=== PATIENT | male | born 1990 | race American Indian/Alaskan Native ===

== ENCOUNTER 2019-12-11 19:36 | Emergency (ER) | payer SELFPAY ==
[2019-12-11 19:57] VITALS: BP 135/98
--- NOTE | 2019-12-11 20:43 | XRay Report ---
LEFT SHOULDER, 2 VIEWS INDICATION / CLINICAL INFORMATION: MAIN: Injured left shoulder playing football TODAY. COMPARISON: None available. FINDINGS: No glenohumeral fracture or dislocation. Comminuted and significantly displaced distal left clavicle fracture. Signer Name: Sarkis Orozco MD Signed: 12/11/2019 8:39 PM Workstation Name: [id number]
[2019-12-11] MEDS ORDERED: HYDROcodone/ACETAMINOPHEN 7.5-325MG TAB PO ONE (20:58)
[2019-12-11] MEDS ORDERED: HYDROcodone/ACETAMINOPHEN 7.5-325MG TAB ONE (21:00)
--- NOTE | 2019-12-11 21:04 | Emergency Department Report ---
ED Upper Extremity Inj HPI - General Chief Complaint: Extremity Injury, Upper Stated Complaint: LEFT SHOULDER INJURY Time Seen by Provider: 12/11/19 20:41 Source: patient Mode of arrival: Ambulatory Limitations: No Limitations - History of Present Illness Initial Comments: Is a very pleasant 29-year-old male who presents to the emergency department with chief complaint of left shoulder pain. Patient reports he was playing football with his son when he jumped stretching outward to try and catch a ball and landed on his left shoulder. He denies hitting his head or losing consciousness. He reports the pain in his left shoulder is rated a 9 out of 10 in severity and is aggravated with any movement of the left shoulder. Pain is described as throbbing and dull. No radiating pain. Specifically he has pain when he abducts the left shoulder. He denies any radiating pain. He denies any known past medical history, current medication use or known allergies to medications. - Related Data Previous Rx's Medication Instructions Recorded Last Taken Type Acetaminophen with Codeine 1 each PO Q6HR #15 tablet 12/11/19 Unknown Rx [Acetaminophen-Codeine #4 TAB] Allergies Allergy/AdvReac Type Severity Reaction Status Date / Time No Known Allergies Allergy Unverified 12/11/19 19:53 ED Review of Systems ROS: Stated complaint: LEFT SHOULDER INJURY Other details as noted in HPI Comment: All other systems reviewed and negative Constitutional: denies: chills, fever Eyes: denies: eye pain, eye discharge, vision change ENT: denies: ear pain, throat pain Respiratory: denies: cough, shortness of breath, wheezing Cardiovascular: denies: chest pain, palpitations Endocrine: no symptoms reported Gastrointestinal: denies: abdominal pain, nausea, diarrhea Genitourinary: denies: urgency, dysuria Musculoskeletal: as per HPI, arthralgia. denies: back pain, joint swelling Skin: denies: rash, lesions Neurological: denies: headache, weakness, paresthesias Psychiatric: denies: anxiety, depression Hematological/Lymphatic: denies: easy bleeding, easy bruising ED Past Medical Hx - Past Medical History Previous Medical History?: No - Surgical History Past Surgical History?: No - Social History Smoking Status: Current Every Day Smoker - Medications Home Medications: Home Medications Medication Instructions Recorded Confirmed Last Taken Type Acetaminophen with Codeine 1 each PO Q6HR #15 tablet 12/11/19 Unknown Rx [Acetaminophen-Codeine #4 TAB] ED Physical Exam - General Limitations: No Limitations General appearance: alert, in no apparent distress - Head Head exam: Present: atraumatic, normocephalic - Eye Eye exam: Present: normal appearance, PERRL, EOMI Pupils: Present: normal accommodation - ENT ENT exam: Present: normal exam, normal orophraynx, mucous membranes moist, normal external ear exam - Neck Neck exam: Present: normal inspection, full ROM. Absent: tenderness, meningismus - Respiratory Respiratory exam: Present: normal lung sounds bilaterally. Absent: respiratory distress, wheezes, rales, rhonchi, stridor - Cardiovascular Cardiovascular Exam: Present: regular rate, normal rhythm, normal heart sounds. Absent: systolic murmur, diastolic murmur, rubs, gallop - GI/Abdominal GI/Abdominal exam: Present: soft, normal bowel sounds. Absent: distended, ten derness, guarding, rebound, rigid - Rectal Rectal exam: Present: deferred - Extremities Exam Extremities exam: Present: normal inspection, tenderness (There is tenderness to the distal left clavicle near the AC joint. There is pain with abduction of the left shoulder. There are normal radial pulses. There is normal full active range of motion of the wrist, elbow without pain. There is no tenderness to the glenohumeral joint. There is no midline tenderness of the cervical, thoracic or lumbar spine. There are normal distal sensation and cap refill.) - Back Exam Back exam: Present: normal inspection - Neurological Exam Neurological exam: Present: alert, oriented X3 - Psychiatric Psychiatric exam: Present: normal affect, normal mood - Skin Skin exam: Present: warm, dry, intact, normal color. Absent: rash ED Course Vital Signs 12/11/19 19:55 Temperature 98.3 F Pulse Rate 94 H Respiratory 18 Rate Blood Pressure 135/98 O2 Sat by Pulse 100 Oximetry ED Medical Decision Making - Radiology Data Radiology results: report reviewed, image reviewed XRay Report Signed Patient: VIBHA BERRIOS MR#: [id number] : 1990 Acct:[id number] Age/Sex: 29 / M ADM Date: 12/11/19 Loc: ED Attending Dr: Ordering Physician: NISHA ADDISON Date of Service: 12/11/19 Procedure(s): XR shoulder 2+V LT Accession Number(s): [id number] cc: NISHA ADDISON Fluoro Time In Minutes: LEFT SHOULDER, 2 VIEWS INDICATION / CLINICAL INFORMATION: MAIN: Injured left shoulder playing football TODAY. COMPARISON: None available. FINDINGS: No glenohumeral fracture or dislocation. Comminuted and significantly displaced distal left clavicle fracture. Signer Name: Sarkis Orozco MD Signed: 12/11/2019 8:39 PM Workstation Name: [id number] Transcribed By: SHAHEED Dictated By: Sarkis Orozco MD Electronically Authenticated By: Sarkis Orozco MD Signed Date/Time: 12/11/192038 - Medical Decision Making Patient is nontoxic in no acute distress. X-ray of the left shoulder revealed a comminuted slightly displaced distal left clavicle fracture. The glenohumeral joint appears to be intact. Patient is neuro and vascularly intact. The axillary nerve sensation is intact. Patient was placed in a shoulder immobilizer by me. The application was appropriate and the neuro and vascular exam pre-and post application was normal. The patient did have a small abrasion to the left upper shoulder that did not communicate with the fracture. This was not an open fracture. I recommended a tetanus shot however the patient politely declined stating he was afraid of needles. He understood the risk of not getting a tetanus shot including getting tetanus which is highly fatal. He understood these risks and preferred to follow-up. I will refer him to orthopedics and he understood that due to the fracture being close to the AC joint was highly important that he follows up with an orthopedist to avoid chronic pain, deformity of the left arm. He was instructed to return to the emergency department immediately if he develops any changing or worsening symptoms. Patient was neurally and vascularly intact with no evidence of vascular injury. Highly recommended follow-up with tissue specialist. He verbalized understanding of the diagnosis, treatment plan and follow-up instructions and all of his questions were answered. - Differential Diagnosis Fracture, strain, sprain Critical care attestation.: If time is entered above; I have spent that time in minutes in the direct care of this critically ill patient, excluding procedure time. ED Disposition Clinical Impression: Closed left clavicular fracture Qualifiers: Encounter type: initial encounter Clavicle location: lateral end Fracture alignment: displaced Qualified Code(s): S42.032A - Displaced fracture of lateral end of left clavicle, initial encounter for closed fracture Disposition: TO HOME OR SELFCARE Is pt being admited?: No Condition: Stable Instructions: Clavicle Fracture (ED) Prescriptions: Acetaminophen with Codeine [Acetaminophen-Codeine #4 TAB] 1 each PO Q6HR #15 tablet Referrals: CHARI IGLESIAS MD [Staff Physician] - 3-5 Days [facility] [Provider Group] - 3-5 Days GABBIE MOSLEY MD [Staff Physician] - 3-5 Days Time of Disposition: 21:05
== END 2019-12-11 22:23 | disposition home or self-care (01) ==
LOC: ED 19:36
DX: S42.032A Displaced fracture of lateral end of left clavicle, initial encounter for closed fracture (principal); F17.200 Nicotine dependence, unspecified, uncomplicated; Z79.899 Other long term (current) drug therapy; X58.XXXA Exposure to other specified factors, initial encounter; Y93.61 Activity, american tackle football; Y92.89 Other specified places as the place of occurrence of the external cause; Y99.8 Other external cause status
CPT/HCPCS: 99283